=== PATIENT | female | born 1935 | race Caucasian/White ===

== ENCOUNTER 2017-01-03 18:30 | Inpatient (IN) | payer OTHER ==
--- NOTE | 2017-01-03 19:13 | EDPHY ---
HPI/HX/ROS/PE/MDM Narrative: Chief complaint: Cough and shortness of breath HPI: Patient is presenting with 4 days of worsening cough productive of yellow sputum and shortness of breath particularly on exertion. Patient states that she was seen 3 weeks ago for a viral upper respiratory process. She was started on an albuterol inhaler and Mucinex by her Ear Nose and Throat doctor. At that time she had a dry nonproductive cough. She completely recovered from that by a week ago, but then she began feeling unwell again with earlier last week. No fevers or chills was. Did some fatigue. Does not smoke. Does not wear oxygen at home. No chest pain. ROS: 10 point Review of Systems is negative except as noted in the HPI. Physical exam: Gen: Awake, Alert, No Distress HEENT: Ears: Bilateral TMs are normal, no erythema or bulging. External auditory canals are clear. Nose: no rhinorrhea Eyes: PERRLA, EOMI Mouth: Moist mucosa Neck: Supple, no JVD Chest: nontender, decreased breath sounds at the bases with mild expiratory wheezes at the bases only. No focal rales or rhonchi Heart: S1, S2 normal, no murmur Abd: Soft, non-tender, no guarding Back: no CVA tenderness, no midline tenderness Ext: no edema, non-tender Skin: no rash Neuro: CN II-XII intact, Sensation grossly intact, Strength 5/5 in bilateral upper and lower extremities ED Course: Chest x-ray: Patient has diaphragmatic flattening and large lung bautista, no focal infiltrate. 81-year-old with upper respiratory symptoms presenting with mild wheezing, chest x-ray consistent with possible COPD and hypoxemia 84%. She is afebrile. Does not any evidence infiltrate her chest x-ray. Does not carry a prior diagnosis of COPD and has not smoked since the 70s. Recently treated for viral upper respiratory symptoms. Will require admission for further evaluation. - Data Points Laboratory Results: Laboratory Results 01/03/17 19:15 01/03/17 19:15 01/03/17 01/03/17 19:20 19:15 WBC 7.53 10^3/uL (3.80-9.50) RBC 4.66 10^6/uL (4.18-5.33) Hgb 15.0 g/dL (12.6-16.3) Hct 43.8 % (38.0-47.0) MCV 94.0 fL (81.5-99.8) MCH 32.2 pg (27.9-34.1) MCHC 34.2 g/dL (32.4-36.7) RDW 14.0 % (11.5-15.2) Plt Count 425 H 10^3/uL (150-400) MPV 8.0 L fL (8.7-11.7) Neut % (Auto) 71.6 % (39.3-74.2) Lymph % (Auto) 15.1 % (15.0-45.0) Bartholomew % (Auto) 8.1 % (4.5-13.0) Eos % (Auto) 4.1 % (0.6-7.6) Baso % (Auto) 0.8 % (0.3-1.7) Nucleat RBC Rel Count 0.0 % (0.0-0.2) Absolute Neuts (auto) 5.39 10^3/uL (1.70-6.50) Absolute Lymphs (auto) 1.14 10^3/uL (1.00-3.00) Absolute Monos (auto) 0.61 10^3/uL (0.30-0.80) Absolute Eos (auto) 0.31 10^3/uL (0.03-0.40) Absolute Basos (auto) 0.06 10^3/uL (0.02-0.10) Absolute Nucleated RBC 0.00 10^3/uL (0-0.01) Immature Gran % 0.3 % (0.0-1.1) Immature Gran # 0.02 10^3/uL (0.00-0.10) Sodium 133 L mEq/L (134-144) Potassium 4.4 mEq/L (3.5-5.2) Chloride 94 L mEq/L (97-110) Carbon Dioxide 26 mEq/l (22-31) Anion Gap 13 mEq/L (8-16) BUN 11 mg/dL (7-23) Creatinine 0.5 L mg/dL (0.6-1.0) Estimated GFR > 60 Glucose 111 H mg/dL (70-100) Calcium 10.1 mg/dL (8.5-10.4) Troponin I < 0.012 ng/mL (0-0.034) Influenza A & B (PCR) Pending General Time Seen by Provider: 01/03/17 18:59 Initial Vital Signs: Initial Vital Signs Temperature (C) 36.4 C 01/03/17 18:40 Heart Rate 97 01/03/17 18:40 Respiratory Rate 16 01/03/17 18:40 Blood Pressure 168/94 H 01/03/17 18:40 O2 Sat (%) 84 L 01/03/17 18:40 O2 Delivery Mode Room Air O2 (L/minute) 2 Allergies/Adverse Reactions: Sulfa (Sulfonamide Antibiotics) [Sulfa(Sulfonamide Antibiotics)] Allergy ( Verified 04/20/16 13:49) Home Medications: Medication Instructions Recorded Metoprolol Tartrate [Lopressor 25 25 mg PO DAILY 05/26/12 mg (RX)] Rosuvastatin Calcium [Crestor 5mg] 0.5 tab PO DAILY 05/26/12 Ubidecarenone [Co Q-10 200 mg] 200 mg PO DAILY 05/26/12 Amlodipine Unk 02/19/13 Metoprolol Tartrate 25 mg PO BID #7 tablet 02/20/13 Hydrocodone/APAP 5/325 [Spencer 0.5 tab PO Q6 PRN #10 tab 04/20/16 5/325 (RX)]
[2017-01-03 19:30] LABS: % IMMATURE GRANULYOCYTES 0.3 % (0.0-1.1); ABSOLUTE IMMATURE GRANULOCYTES 0.02 10^3/uL (0.00-0.10); ADD DIFF? NO; ADD MORPH? NO; ADD SCAN? NO; ATYPICAL LYMPHOCYTE FLAG 10 (0-99); FRAGMENT RBC FLAG 0 (0-99); HEMATOCRIT 43.8 % (38.0-47.0); LEFT SHIFT FLG 0 (0-99); LIPEMIA HEMOLYSIS FLAG 90 (0-99); MEAN CELL HEMOGLOBIN 32.2 pg (27.9-34.1); MEAN CELL HEMOGLOBIN CONCENTR. 34.2 g/dL (32.4-36.7); PLATELET CLUMPS FLAG 0 (0-99); PLATELET COUNT 425 10^3/uL (150-400); RED BLOOD CELL COUNT 4.66 10^6/uL (4.18-5.33)
[2017-01-03 19:48] LABS: ANION GAP 13 mEq/L (8-16); CALCIUM 10.1 mg/dL (8.5-10.4); CARBON DIOXIDE 26 mEq/l (22-31); CHLORIDE 94 mEq/L (97-110); CREATININE 0.5 mg/dL (0.6-1.0); GLOMERULAR FILTRATION RATE > 60; GLUCOSE 111 mg/dL (70-100); POTASSIUM 4.4 mEq/L (3.5-5.2); SODIUM 133 mEq/L (134-144)
[2017-01-03 20:00] LABS: TROPONIN I < 0.012 ng/mL (0-0.034)
[2017-01-03] MEDS ORDERED: IPRATROPIUM/ALBUTEROL 3 ML DEYVIAL IH ONE (20:13)
[2017-01-03] MEDS ORDERED: AZITHROMYCIN 250 MG TAB PO ONE (20:37)
--- NOTE | 2017-01-03 20:40 | CPEKG ---
Heart Rate: 93 RR Interval: 645 QRSD Interval: 94 QT Interval: 368 QTC Interval: 458 QRS [place]: -17 T Wave [place]: 76 EKG Severity - ABNORMAL ECG - EKG Impression: Sinus rhythm EKG Impression: ANTERIOR INFARCT, AGE INDETERMINATE Electronically Signed By: Jose Morales 05-Jan-2017 07:25:03
--- NOTE | 2017-01-03 21:02 | DX ---
PA and lateral chest. Clinical History: sob cough hypoxic Comparison Study: June 23, 2014.. Findings: Interstitial thickening is present in the upper lobes bilaterally, similar to prior study. No confluent infiltrate or pleural effusion. Heart size is normal.. Degenerative changes are present throughout the thoracic spine.. Impression: Stable negative chest.
[2017-01-03] MEDS ORDERED: ACETAMINOPHEN 325 MG TAB PO PRN (21:55)
[2017-01-03] MEDS ORDERED: ONDANSETRON 4 MG/2 ML VIAL IVP PRN (21:55)
[2017-01-03] MEDS ORDERED: ZOLPIDEM TARTRATE 5 MG TAB PO PRN (21:55)
[2017-01-03] MEDS ORDERED: ALBUTEROL 3 ML DEYVIAL IH PRN (21:55)
--- NOTE | 2017-01-03 22:14 | PDGENHP ---
History and Physical History and Physical: HISTORY AND PHYSICAL ADMISSION NOTE CC:Short of breath HISTORY: This patient with known smoking history an previous diagnosis of mild COPD comes in with several days of worsening cough and shortness of breath without chest pain or fever or flu-like symptoms. her cough has been mildly productive which is new for her She has had no pain or swelling in the legs, no mobilization, no injuries or surgeries. She has no history of heart disease in nothing that sounds like angina or palpitations she was given an inhaler several days ago with albuterol and this has helped a bit but is not really controlling her symptoms. Today she became quite since short of breath and was having difficulty walking. She is not on any long-acting inhaled medications, antibiotics, or steroid ROS: no other findings on 10 system review PAST MEDICAL HISTORY: COPD Hypertension Hypercholesterolemia ESBL urinary tract infection some years ago FAMILY MEDICAL HISTORY: heart disease in her family but no COPD some cancers SOCIAL HISTORY: lives with her Quit smoking in 1971 No alcohol MEDICATIONS: Reconciled by our pharmacist in the electronic record and I have reviewed the medicines and ordered appropriate medications PHYSICAL EXAMINATION: Vital Signs: some mild systolic hypertension otherwise normal Wax Molder: sinus rhythm Examination: General: alert, oriented, good mentation, relaxed Skin: warm, dry, good color, no rash HEENT: normal Neck: no mass or jvd Resps: mildly labored, she does have notably some soft tissue retractions with inspiration Lungs: prolonged expiration phase of breathing with diffuse mild wheezing and overall very diminished breath sounds Heart: regular, no murmur Abdomen: soft, nondistended, nontender, +BS, no mass Upper Extremities: normal Lower Extremities: no edema, warm No Bleeding or bruising Neurologic: normal speech/language, normal general manager oracle data cloud, no focal weakness IV site: looks normal RADIOLOGY STUDIES: chest x-ray done in ER, my review and interpretation of the image: Severe hyperexpansion of both lungs with no infiltrates effusions pulmonary edema or cardiac abnormalities no masses ASSESSMENT: # acute respiratory failure, hypoxemic # Acute COPD exacerbation PLANS: - admission to hospital, inpatient as the patient clearly does not look like she will recover within 2 days for safety discharge home -Nebulized bronchodilators, steroids, azithromycin -Ambulation is able -DVT prophylaxis -I have recommended that we have her follow up with a sequins stringer in the outpatient setting, and that she be referred as well from there to the pulmonary rehab clinic -She should be started on some long-acting inhaled medications at the time of discharge I have reviewed the patient's case in detail with Dr. Ayad Hill
[2017-01-03] MEDS: amLODIPine BESYLATE 5 MG TAB PO SCH (23:08)
[2017-01-03] MEDS: METOPROLOL TARTRATE 25 MG TAB PO SCH (23:09)
[2017-01-04] MEDS: IPRATROPIUM/ALBUTEROL 3 ML DEYVIAL IH SCH ×4 (05:50→21:28)
--- NOTE | 2017-01-04 08:27 | HOSPPROG ---
Hospitalist Progress Note Assessment/Plan: Patient is an 81-year-old woman with a history of smoking and diagnoses of mild COPD. She presented to the emergency room with worsening cough and shortness of breath. Today is my 1st encounter with the patient. Chart reviewed. #. Hypoxemic respiratory failure * influenza is negative * requiring 5 L of oxygen this morning #. acute COPD exacerbation * on prednisone bronchodilators and azithromycin #. DVT prophylaxis * LMWH #. mild hyponatremia * will follow #. Hx of ESBL * on precautions #. HTN * bp a bit elevated this a.m. #. Plan: will require another midnight stay/ O2 requirement too high, will add long acting bronchodilator Subjective: Carmella is feeling better than yesterday, but feels too poorly for dc. Objective: Vital Signs Temp Pulse Resp BP Pulse Ox 36.4 C 88 18 150/82 H 94 01/04/17 04:00 01/04/17 05:54 01/04/17 05:54 01/04/17 04:00 01/04/17 05:54 - Physical Exam Constitutional: no apparent distress Eyes: PERRL Ears, Nose, Mouth, Throat: hearing normal Cardiovascular: regular rate and rhythym Respiratory: no respiratory distress, rhonchi (few) Gastrointestinal: normoactive bowel sounds Skin: warm Musculoskeletal: full muscle strength Neurologic: AAOx3 Psychiatric: interacting appropriately ICD10 Worksheet Patient Problems: Problems Problem Status Diagnosed ESBL (extended spectrum beta-lactamase) producing bacteria infection Acute 10/27
[2017-01-04] MEDS ORDERED: METOPROLOL TARTRATE 25 MG TAB PO SCH (09:00)
[2017-01-04] MEDS ORDERED: NON-FORMULARY NEW DRUG (Rosuvastatin Calcium [Crestor 5mg] 5 MG) PO SCH (09:00)
[2017-01-04] MEDS: ENOXAPARIN 40 MG/0.4 ML SYR SC SCH (09:09)
[2017-01-04] MEDS: METOPROLOL TARTRATE 25 MG TAB PO SCH ×2 (09:10→20:08)
[2017-01-04] MEDS: AZITHROMYCIN 250 MG TAB PO SCH (09:11)
[2017-01-04] MEDS: ROSUVASTATIN CALCIUM 10 MG TAB PO SCH (09:12)
[2017-01-04] MEDS: predniSONE 20 MG TAB PO SCH ×2 (09:13→18:01)
[2017-01-04] MEDS: FLUTICASONE/SALMETER 250/50MCG DISKUS IH SCH ×2 (10:06→21:28)
[2017-01-04] MEDS: amLODIPine BESYLATE 5 MG TAB PO SCH (20:03)
[2017-01-04] MEDS ORDERED: amLODIPine BESYLATE 5 MG TAB PO SCH (21:00)
[2017-01-05] MEDS: IPRATROPIUM/ALBUTEROL 3 ML DEYVIAL IH SCH ×4 (05:09→21:13)
[2017-01-05 06:18] LABS: ANION GAP 11 mEq/L (8-16); CALCIUM 9.5 mg/dL (8.5-10.4); CARBON DIOXIDE 26 mEq/l (22-31); CHLORIDE 91 mEq/L (97-110); CREATININE 0.6 mg/dL (0.6-1.0); GLOMERULAR FILTRATION RATE > 60; GLUCOSE 113 mg/dL (70-100); SODIUM 128 mEq/L (134-144)
[2017-01-05] MEDS: predniSONE 20 MG TAB PO SCH ×2 (08:40→18:05)
[2017-01-05] MEDS: AZITHROMYCIN 250 MG TAB PO SCH (08:40)
[2017-01-05] MEDS: ROSUVASTATIN CALCIUM 10 MG TAB PO SCH (08:41)
[2017-01-05] MEDS: METOPROLOL TARTRATE 25 MG TAB PO SCH ×2 (08:42→21:46)
[2017-01-05] MEDS: ENOXAPARIN 40 MG/0.4 ML SYR SC SCH (08:43)
[2017-01-05] MEDS: FLUTICASONE/SALMETER 250/50MCG DISKUS IH SCH ×2 (09:52→21:13)
--- NOTE | 2017-01-05 11:35 | HOSPPROG ---
Hospitalist Progress Note Assessment/Plan: Patient is an 81-year-old woman with a history of smoking and diagnoses of mild COPD. She presented to the emergency room with worsening cough and shortness of breath. #. Hypoxemic respiratory failure * influenza is negative * requiring 2-3 L of oxygen this morning/improving #. acute COPD exacerbation * on prednisone bronchodilators and azithromycin #. DVT prophylaxis * LMWH #. hyponatremia * she has been drinking increase water/ encouraged her to drink protein drinks/ will fluid restrict #. Hx of ESBL * on precautions #. HTN * bp 123/67 #. Plan: will monitor for another midnight/ hopefully, can go home in a.m. / may need oxygen Subjective: Carmella is feeling better Objective: Vital Signs Temp Pulse Resp BP Pulse Ox 36.4 C 96 20 123/67 H 91 L 01/05/17 07:55 01/05/17 08:54 01/05/17 08:54 01/05/17 07:55 01/05/17 08:54 Laboratory Results 01/05/17 04:47 01/04/17 01/05/17 01/06/17 05:59 05:59 05:59 Intake Total 710 Output Total 600 Balance 710 -600 - Physical Exam Constitutional: no apparent distress, appears nourished, not in pain Eyes: PERRL Ears, Nose, Mouth, Throat: hearing normal Cardiovascular: regular rate and rhythym Respiratory: no respiratory distress, reduced air movement (bibasilar) Gastrointestinal: normoactive bowel sounds Skin: warm, normal color Musculoskeletal: full muscle strength Neurologic: AAOx3 Psychiatric: interacting appropriately, not anxious ICD10 Worksheet Patient Problems: Problems Problem Status Diagnosed ESBL (extended spectrum beta-lactamase) producing bacteria infection Acute 10/27
[2017-01-05] MEDS: amLODIPine BESYLATE 5 MG TAB PO SCH (21:46)
[2017-01-05 23:32] VITALS: RESP 16
[2017-01-06] MEDS: IPRATROPIUM/ALBUTEROL 3 ML DEYVIAL IH SCH ×2 (06:00→09:39)
[2017-01-06 06:19] LABS: ANION GAP 8 mEq/L (8-16); CALCIUM 9.3 mg/dL (8.5-10.4); CARBON DIOXIDE 28 mEq/l (22-31); CHLORIDE 99 mEq/L (97-110); CREATININE 0.6 mg/dL (0.6-1.0); GLOMERULAR FILTRATION RATE > 60; GLUCOSE 101 mg/dL (70-100); POTASSIUM 5.2 mEq/L (3.5-5.2); SODIUM 135 mEq/L (134-144)
[2017-01-06 08:02] VITALS: BP 118/68; TEMP 97.9
[2017-01-06] MEDS: ROSUVASTATIN CALCIUM 10 MG TAB PO SCH (09:22)
[2017-01-06] MEDS: AZITHROMYCIN 250 MG TAB PO SCH (09:22)
[2017-01-06] MEDS: METOPROLOL TARTRATE 25 MG TAB PO SCH (09:23)
[2017-01-06] MEDS: predniSONE 20 MG TAB PO SCH (09:23)
[2017-01-06] MEDS: ENOXAPARIN 40 MG/0.4 ML SYR SC SCH (09:23)
[2017-01-06] MEDS: FLUTICASONE/SALMETER 250/50MCG DISKUS IH SCH (09:39)
--- NOTE | 2017-01-06 09:39 | HOSPPROG ---
Hospitalist Progress Note Assessment/Plan: Patient is an 81-year-old woman with a history of smoking and diagnoses of mild COPD. She presented to the emergency room with worsening cough and shortness of breath. #. Hypoxemic respiratory failure * influenza is negative * resolved * on prednisone bronchodilators and azithromycin #. DVT prophylaxis * LMWH #. hyponatremia * resolved #. Hx of ESBL * on precautions #. HTN * bp stable #. Plan: dc Subjective: Carmella is feeling great/ ready to go home. Objective: Vital Signs Temp Pulse Resp BP Pulse Ox 36.6 C 100 16 118/68 90 L 01/06/17 08:00 01/06/17 08:00 01/06/17 08:00 01/06/17 08:00 01/06/17 08:00 Laboratory Results 01/06/17 04:44 01/05/17 01/06/17 01/07/17 05:59 05:59 05:59 Intake Total 710 200 Output Total 600 Balance 710 -400 - Physical Exam Constitutional: no apparent distress, appears nourished, not in pain Eyes: PERRL Ears, Nose, Mouth, Throat: hearing normal Cardiovascular: regular rate and rhythym Respiratory: no respiratory distress Skin: warm, normal color Musculoskeletal: full muscle strength, no muscle tenderness Neurologic: AAOx3 Psychiatric: interacting appropriately, not anxious, not encephalopathic ICD10 Worksheet Patient Problems: Problems Problem Status Onset Chronic Disease Mgmt/Transitional Care Acute ESBL (extended spectrum beta-lactamase) producing bacteria infection Acute 04/07
[2017-01-06 09:46] VITALS: PULSE 110; O2SAT 94
--- NOTE | 2017-01-06 11:54 | GDS ---
[f rep st] DISCHARGE SUMMARY DISCHARGE DIAGNOSES: 1. Hypoxemic respiratory failure. 2. Hyponatremia. 3. History of ESBL. 4. Hypertension. BRIEF HISTORY: Carmella Carreon is a very sweet 81-year-old woman who has a known history of smoking and a previous diagnosis of mild COPD. She presented to the emergency room with worsening cough and shortness of breath without chest pain or fever, flu like symptoms. She was checked for influenza. That was negative. She was placed on long-acting inhaled steroids as well as oral steroids and azithromycin. She has improved nicely. She will be discharged home and follow up with her primary care provider. HOSPITAL COURSE PER PROBLEM: 1. Hypoxemic respiratory failure. This has resolved. Influenza is negative. She is on prednisone, bronchodilators and azithromycin. 2. Hyponatremia, resolved. 3. History of ESBL. Placed on precautions during her stay. 4. Hypertension. Blood pressure is stable. PENDING LABS AND TESTS: None. CONDITION ON DISCHARGE: Stable. Blood pressure is 118/68, respiratory rate is 16, pulse is 90, O2 saturations on room air 92%, temperature is 36.6 Celsius. MEDICATIONS AT DISCHARGE: Please see the EMR. DISCHARGE INSTRUCTIONS: To follow up with her PCP at discharge in 2 weeks. I have left Dr. Phillips a message in regard to her admission and discharge. Greater than 30 minutes discharging and coordinating care. /[id number]/MODL MTDD
== END 2017-01-06 11:56 | disposition home or self-care (01) | DRG 189 ==
LOC: F3E 21:30
PROVIDERS: ADMIT Internal Medicine; ATTEND Internal Medicine
DX: J96.91 Respiratory failure, unspecified with hypoxia (principal); J44.1 Chronic obstructive pulmonary disease with (acute) exacerbation; E87.1 Hypo-osmolality and hyponatremia; I10 Essential (primary) hypertension; E78.00 Pure hypercholesterolemia, unspecified; Z85.9 Personal history of malignant neoplasm, unspecified; Z87.891 Personal history of nicotine dependence
CPT/HCPCS: J1650

== ENCOUNTER 2017-01-27 19:14 | Observation (INO) | payer OTHER ==
[2017-01-27] MEDS ORDERED: IPRATROPIUM/ALBUTEROL 3 ML DEYVIAL IH ONE (19:38)
[2017-01-27] MEDS ORDERED: DEXAMETHASONE 10 MG/ML VIAL IVP ONE (19:40)
--- NOTE | 2017-01-27 20:14 | EDPHY ---
H & P Stated Complaint: SOB for two days-sees Danis Perez Time Seen by Provider: 01/27/17 19:28 HPI/ROS: CHIEF COMPLAINT: shortness of breath, cough HISTORY OF PRESENT ILLNESS: complains of 2-3 days of shortness of breath and cough. Mild 1st. Now moderate to severe. Steadily worsening. Constant duration. Worse with exertion. Improved at rest. No chest pain of any kind at any point. No abdominal or urinary complaints. No fever or chills. No headache or dizziness. No neck pain or stiffness. She was recently admitted to the hospital and diagnosed with bronchitis and possibly COPD. She has seen a data integration developer for this. She has been placed on albuterol by the data integration developer yesterday. No recent travel or surgery. No history of venous thrombolic event. No other particular modifying factors. No associated. Patient was reportedly 80% on room air with a good wave form REVIEW OF SYSTEMS: Ten systems reviewed and are negative unless otherwise noted in the HPI EXAMINATION General Appearance: Alert, no distress Head: normocephalic, atraumatic Eyes: Pupils equal and round, no conjunctival pallor or injection ENT, Mouth: Mucous membranes moist. Uvula midline. No erythema or edema. Neck: Normal inspection, supple, non-tender Respiratory: Course, scattered rhonchi and wheezing. No consolidation or distress. No diminishment Cardiovascular: Regular rate and rhythm. No murmur. Pulses intact distally. Gastrointestinal: Abdomen is soft and nontender . No tympany or rigidity. Neurological: A&O, nonfocal, normal gait Skin: Warm and dry, no rash Extremities: Nontender, no pedal edema Psychiatric: Mood and affect normal DIFFERENTIAL DIAGNOSES: Including but not limited to Healthcare associated pneumonia, bronchitis, influenza, COPD exacerbation, community-acquired pneumonia, interstitial lung disease MDM: 7:40 p.m. cough and shortness of breath with examination consistent with COPD exacerbation versus pneumonia. She was 83% on room air. She is improving on 2- 4 L nasal cannula. She is in no acute distress and has otherwise normal vital signs. I did order blood cultures, lactic acid and chest x-ray as well as an influenza swab. Patient will be admitted to the hospital given her significant hypoxia. She is in no acute distress and no need of BiPAP or intubation. 8:50 p.m. likely COPD exacerbation. She is feeling better after DuoNeb treatment. Chest x-ray is consistent with emphysematous changes. She is hypoxic but not tachycardic. Nor did she have any chest pain or lower extremity symptoms consistent with DVT. I will contact the hospitalist for admission for COPD exacerbation due to the hypoxia. I have discussed the case with Dr. Lozoya and he will admit the patient to inpatient status. She is hemodynamically stable in no acute distress. SUPERVISION: Independent evaluation with admission Source: Patient, Family Exam Limitations: No limitations - Personal History Current Tetanus/Diphtheria Vaccine: Unsure Current Tetanus Diphtheria and Acellular Pertussis (TDAP): Unsure Tetanus Vaccine Date: < 10 years - Medical/Surgical History Hx Asthma: No Hx Chronic Respiratory Disease: Yes Hx Diabetes: No Hx Cardiac Disease: Yes Hx Renal Disease: No Hx Cirrhosis: No Hx Alcoholism: No Hx HIV/AIDS: No Hx Splenectomy or Spleen Trauma: No Other PMH: HTN, hyperlipidemia, bronchitis. - Social History Smoking Status: Never smoked Constitutional: Initial Vital Signs Temperature (C) 97.0 F 01/27/17 19:18 Heart Rate 83 01/27/17 19:18 Respiratory Rate 18 01/27/17 19:18 Blood Pressure 178/89 H 01/27/17 19:18 O2 Sat (%) 83 L 01/27/17 19:18 O2 Delivery Mode Room Air O2 (L/minute) 2 Allergies/Adverse Reactions: Sulfa (Sulfonamide Antibiotics) [Sulfa(Sulfonamide Antibiotics)] Allergy (Severe , Verified 01/27/17 19:24) Hives Home Medications: Medication Instructions Recorded Albuterol 01/27/17 Amlodipine Besylate 01/27/17 Crestor 01/27/17 Metoprolol Tartrate 01/27/17 Medical Decision Making - Data Points Laboratory Results: Laboratory Results 01/27/17 19:54 01/27/17 19:54 01/27/17 01/27/17 01/27/17 19:54 19:54 19:54 WBC 7.49 10^3/uL 10^3/uL (3.80-9.50) RBC 4.54 10^6/uL 10^6/uL (4.18-5.33) Hgb 14.6 g/dL g/dL (12.6-16.3) Hct 42.8 % % (38.0-47.0) MCV 94.3 fL fL (81.5-99.8) MCH 32.2 pg pg (27.9-34.1) MCHC 34.1 g/dL g/dL (32.4-36.7) RDW 14.9 % % (11.5-15.2) Plt Count 289 10^3/uL 10^3/uL (150-400) MPV 9.0 fL fL (8.7-11.7) Neut % (Auto) 69.7 % % (39.3-74.2) Lymph % (Auto) 13.0 % L % (15.0-45.0) Ellis % (Auto) 7.1 % % (4.5-13.0) Eos % (Auto) 9.2 % H % (0.6-7.6) Baso % (Auto) 0.9 % % (0.3-1.7) Nucleat RBC Rel Count 0.0 % % (0.0-0.2) Absolute Neuts (auto) 5.22 10^3/uL 10^3/uL (1.70-6.50) Absolute Lymphs (auto) 0.97 10^3/uL L 10^3/uL (1.00-3.00) Absolute Monos (auto) 0.53 10^3/uL 10^3/uL (0.30-0.80) Absolute Eos (auto) 0.69 10^3/uL H 10^3/uL (0.03-0.40) Absolute Basos (auto) 0.07 10^3/uL 10^3/uL (0.02-0.10) Absolute Nucleated RBC 0.00 10^3/uL 10^3/uL (0-0.01) Immature Gran % 0.1 % % (0.0-1.1) Immature Gran # 0.01 10^3/uL 10^3/uL (0.00-0.10) PT 13.3 SEC SEC (12.0-15.0) INR 1.02 (0.83-1.16) APTT 33.1 SEC SEC (23.0-38.0) VBG Lactic Acid Sodium 132 mEq/L L mEq/L (134-144) Potassium 4.4 mEq/L mEq/L (3.5-5.2) Chloride 94 mEq/L L mEq/L (97-110) Carbon Dioxide 25 mEq/l mEq/l (22-31) Anion Gap 13 mEq/L mEq/L (8-16) BUN 11 mg/dL mg/dL (7-23) Creatinine 0.4 mg/dL L mg/dL (0.6-1.0) Estimated GFR > 60 Glucose 104 mg/dL H mg/dL (70-100) Calcium 9.9 mg/dL mg/dL (8.5-10.4) Total Bilirubin 1.1 mg/dL mg/dL (0.1-1.4) 01/27/17 19:54 WBC RBC Hgb Hct MCV MCH MCHC RDW Plt Count MPV Neut % (Auto) Lymph % (Auto) Ellis % (Auto) Eos % (Auto) Baso % (Auto) Nucleat RBC Rel Count Absolute Neuts (auto) Absolute Lymphs (auto) Absolute Monos (auto) Absolute Eos (auto) Absolute Basos (auto) Absolute Nucleated RBC Immature Gran % Immature Gran # PT INR APTT VBG Lactic Acid 0.9 mmol/L mmol/L (0.7-2.1) Sodium Potassium Chloride Carbon Dioxide Anion Gap BUN Creatinine Estimated GFR Glucose Calcium Total Bilirubin Medications Given: Discontinued Medications Albuterol/Ipratropium (Duoneb) 3 ml IH EDNOW ONE Stop: 01/27/17 19:39 Last Admin: 01/27/17 19:51 Dose: 3 ml Dexamethasone (Decadron Injection) 10 mg IVP EDNOW ONE Stop: 01/27/17 19:41 Last Admin: 01/27/17 19:55 Dose: 10 mg Departure - Departure Disposition: [facility] Inpatient Acute Clinical Impression: COPD exacerbation, Hypoxia Dyspnea Qualifiers: Dyspnea type: shortness of breath Qualified Code(s): R06.02 - Shortness of breath Condition: Good Referrals: Erendira Phillips MD [Primary Care Provider] - As per Instructions
[2017-01-27 20:16] LABS: % IMMATURE GRANULYOCYTES 0.1 % (0.0-1.1); ABSOLUTE IMMATURE GRANULOCYTES 0.01 10^3/uL (0.00-0.10); ADD DIFF? NO; ADD MORPH? NO; ADD SCAN? NO; ATYPICAL LYMPHOCYTE FLAG 0 (0-99); FRAGMENT RBC FLAG 0 (0-99); HEMATOCRIT 42.8 % (38.0-47.0); HEMOGLOBIN 14.6 g/dL (12.6-16.3); LEFT SHIFT FLG 0 (0-99); LIPEMIA HEMOLYSIS FLAG 90 (0-99); MEAN CELL HEMOGLOBIN 32.2 pg (27.9-34.1); MEAN CELL HEMOGLOBIN CONCENTR. 34.1 g/dL (32.4-36.7); MEAN CELL VOLUME 94.3 fL (81.5-99.8); PLATELET CLUMPS FLAG 0 (0-99); PLATELET COUNT 289 10^3/uL (150-400); RED BLOOD CELL COUNT 4.54 10^6/uL (4.18-5.33); RED CELL DISTRIBUTION WIDTH 14.9 % (11.5-15.2)
[2017-01-27 20:30] LABS: INR 1.02 (0.83-1.16); PROTIME(PATIENT) 13.3 SEC (12.0-15.0)
[2017-01-27 20:31] LABS: APTT 33.1 SEC (23.0-38.0)
[2017-01-27 20:41] LABS: ANION GAP 13 mEq/L (8-16); BILIRUBIN,TOTAL 1.1 mg/dL (0.1-1.4); CALCIUM 9.9 mg/dL (8.5-10.4); CARBON DIOXIDE 25 mEq/l (22-31); CHLORIDE 94 mEq/L (97-110); CREATININE 0.4 mg/dL (0.6-1.0); GLOMERULAR FILTRATION RATE > 60; GLUCOSE 104 mg/dL (70-100); POTASSIUM 4.4 mEq/L (3.5-5.2); SODIUM 132 mEq/L (134-144)
[2017-01-27] MEDS ORDERED: DOXYCYCLINE HYCLATE 100 MG CAP/TAB PO ONE (21:11)
[2017-01-27] MEDS ORDERED: ACETAMINOPHEN 325 MG TAB PO PRN (21:54)
[2017-01-27] MEDS ORDERED: ONDANSETRON 4 MG/2 ML VIAL IVP PRN (21:54)
[2017-01-27] MEDS ORDERED: ALBUTEROL 60 PUFFS/8 GM MDI IH PRN ×2 (21:54→21:56)
[2017-01-27] MEDS ORDERED: ONDANSETRON DISINTEGRATING 4 MG TAB PO PRN (21:54)
[2017-01-27] MEDS ORDERED: ESTRADIOL 42.5 GM CRTUBE VG PRN (21:56)
--- NOTE | 2017-01-27 22:42 | GHP ---
DATE OF ADMISSION: 01/27/2017 HISTORY OF PRESENT ILLNESS: The patient is a pleasant 81-year-old female with history of COPD and h ypertension, who presents with increased shortness of breath and increased work of breathing as well as a dry cough. She was seen here recently and diagnosed with COPD and referred to Dr. Liu as an outpatient. She was seen but not had pulmonary function tests. She is not on steroids. She is no t on home oxygen. She lives in [place] and not the [facility]. She quit smoking in the mid 70s. S he has no fever, chills. No muscle aches. No myalgias. No urgency, frequency, dysuria. She has a pulse oximeter at home. She checked and it was 86%. She also notes wheezing. REVIEW OF SYSTEMS: Complete 10-point review of systems conducted and negative except as noted in th e HPI. PAST MEDICAL HISTORY: 1. COPD which was relatively recently diagnosed and was admitted here in December with such. 2. Hyperlipidemia. 3. Hypertension. 4. History of UTI with some degree of antibiotic resistance in the past. 5. E coli. FAMILY HISTORY: Negative for heart disease in her family. SOCIAL HISTORY: . Lives with her . Quit smoking in 1974. No alcohol. Lives in [facility]. ALLERGIES: Sulfa. MEDICATIONS: Metoprolol, amlodipine, estradiol vaginal cream, acyclovir, multivitamin, calcium carb fitz with D, rosuvastatin. PHYSICAL EXAMINATION: VITAL SIGNS: Blood pressure 178/89, pulse 83, breathing 18 times a minute, 8 3% on room air. GENERAL: No acute distress. HEENT: Sclerae anicteric. Oropharynx clear. Mucous membranes are moist. NECK: Supple. No lymphadenopathy or JVD. LUNGS: Decreased air movement an d quiet breath sounds bilaterally. There is no wheezing. There are no focal decreased breath sound s. HEART: S1, S2 without murmurs. ABDOMEN: Soft, nontender, nondistended. LOWER EXTREMITIES: N o edema. Calves nontender. SKIN: Without rash. NEUROLOGIC: Nonfocal. Chest x-ray, interpreted by me, shows hyperinflation without focal infiltrate consistent with diagno sis of COPD. LABORATORY DATA: White count 7.5, hematocrit 43, platelets are 289,000. Coags normal. Sodium 132, potassium 4.4, chloride 94, bicarb 25, BUN 11, creatinine 0.4. I have discussed the case with Andi Zapata of the emergency department. ASSESSMENT/PLAN: An 81-year-old female who presents with chronic obstructive pulmonary disease mike kim. 1. Chronic obstructive pulmonary disease exacerbation. I will treat with low-dose prednisone at 41 as well as some doxycycline and nebulizers. I wonder if her Lopressor is not playing a role so I h eufemiae discontinued that and recommended alternative antihypertensive agent for her coronary disease. 2. Hypertension. Will continue her amlodipine and hold her Lopressor. 3. Hyponatremia, mild. DISPOSITION: Observation status. /[id number]/MODL
[2017-01-27] MEDS: predniSONE 20 MG TAB PO SCH (23:41)
[2017-01-28 05:20] LABS: COLOR YELLOW; LEUKOCYTE ESTERASE,URINE NEGATIVE (NEGATIVE); NITRITE,URINE NEGATIVE (NEGATIVE)
[2017-01-28 05:49] LABS: ANION GAP 11 mEq/L (8-16); CARBON DIOXIDE 25 mEq/l (22-31); CHLORIDE 96 mEq/L (97-110); CREATININE 0.5 mg/dL (0.6-1.0); GLOMERULAR FILTRATION RATE > 60; GLUCOSE 147 mg/dL (70-100); POTASSIUM 4.6 mEq/L (3.5-5.2); SODIUM 132 mEq/L (134-144)
[2017-01-28] MEDS: IPRATROPIUM/ALBUTEROL 3 ML DEYVIAL IH SCH ×3 (05:51→16:20)
[2017-01-28 07:42] VITALS: RESP 18
[2017-01-28] MEDS: predniSONE 20 MG TAB PO SCH (08:30)
[2017-01-28] MEDS: CALCIUM CARB W/VIT D 500 MG TAB PO SCH ×2 (08:31→12:33)
[2017-01-28] MEDS ORDERED: valACYclovir 500 MG TAB PO SCH (09:00)
[2017-01-28] MEDS ORDERED: DOXYCYCLINE HYCLATE 100 MG CAP/TAB PO SCH (09:00)
[2017-01-28] MEDS ORDERED: Herbals/Supplements -Info Only PO SCH (09:00)
[2017-01-28] MEDS ORDERED: MULTIVITAMINS 1 EACH TAB PO SCH (09:00)
[2017-01-28 11:16] VITALS: BP 133/73; TEMP 97.6; O2SAT 92
[2017-01-28] MEDS ORDERED: IOPAMIDOL (ISOVUE-300) 100 ML BTL IV ONE (11:28)
[2017-01-28] MEDS ORDERED: METOPROLOL TARTRATE 25 MG TAB PO SCH (11:30)
[2017-01-28 12:34] VITALS: PULSE 99
[2017-01-28] MEDS ORDERED: ROSUVASTATIN CALCIUM 10 MG TAB PO SCH (17:00)
--- NOTE | 2017-01-28 19:36 | GDS ---
[f rep st] DISCHARGE SUMMARY DISCHARGE DIAGNOSES: 1. Chronic obstructive pulmonary disease exacerbation. 2. Possible bronchiectasis. 3. Hypertension. HISTORY: The patient is an 81-year-old female who has recently been having problems with shortness of breath. There has been a question of possible COPD, although diagnosis has not been formally mad e. She has an appointment with Dr. Liu for PFTs this upcoming Thursday. He recently discontinued h er Advair, and since then she has been using her albuterol every 6 hours and it has not been holding her. She presented with worsening shortness of breath. She was treated for repeat COPD exacerbati on. She was given prednisone, doxycycline and nebulizers, and rapidly improved. On the morning of discharge she was slightly tachycardic with ongoing shortness of breath despite resolution of wheezi ng, so I did get a CT angiogram of the chest that was negative for pulmonary embolus. Incidentally n oted was some possible mild bronchiectasis. Given her negative CT for PE we will continue with COPD treatment as initiated here. I will do a prednisone burst of 40 mg p.o. daily for 5 days, and cont inue with doxycycline for 7 days. We will resume her Advair, although she was instructed by Dr. Spike goodwin to hold it for 2 days prior to her upcoming PFT's. She was 95% on room air at hospital discharge , and so home oxygen was not indicated. DISCHARGE MEDICATIONS: Please see computerized record for a full detailed list. New medications: 1. Advair 250/50 one puff b.i.d. 2. Prednisone 40 mg p.o. daily for 4 more days. 3. Doxycycline 100 mg p.o. b.i.d. for 7 days. DISCHARGE INSTRUCTIONS: 1. Followup with Dr. Liu as already arranged for outpatient PFTs and further management. 2. Patient seen and examined by me on day of discharge. /[id number]/MODL
[2017-01-28] MEDS ORDERED: amLODIPine BESYLATE 5 MG TAB PO SCH (21:00)
== END 2017-01-28 16:18 | disposition home or self-care (01) ==
LOC: INTOOBSV 20:57 → F3E 23:10
PROVIDERS: ADMIT Internal Medicine; ATTEND Internal Medicine
DX: J44.1 Chronic obstructive pulmonary disease with (acute) exacerbation (principal); I10 Essential (primary) hypertension; E78.5 Hyperlipidemia, unspecified
CPT/HCPCS: 71020; 71275; 96374; 97165; 99285; G0378; G8987; G8988; G8989; Q9967

== ENCOUNTER → 2017-05-22 | Outpatient (CLI) | payer OTHER | LOC: BMCIMAGING 12:19 | PROVIDERS: ATTEND Internal Medicine | DX: Z12.31 Encounter for screening mammogram for malignant neoplasm of breast (principal) | CPT/HCPCS: G0202 ==

== ENCOUNTER → 2017-10-21 | Outpatient (CLI) | payer OTHER ==
[~2017-10-21] MED LIST: IOPAMIDOL (ISOVUE-300) 100 ML BTL ONE
== END ==
LOC: FIMAGING 09:42
PROVIDERS: ATTEND Urology
DX: N39.0 Urinary tract infection, site not specified (principal); M48.061 Spinal stenosis, lumbar region without neurogenic claudication; I70.0 Atherosclerosis of aorta
CPT/HCPCS: 74178; Q9967

== ENCOUNTER → 2018-05-31 | Outpatient (CLI) | payer OTHER | LOC: BMCIMAGING 11:47 | PROVIDERS: ATTEND Internal Medicine | DX: Z12.31 Encounter for screening mammogram for malignant neoplasm of breast (principal) ==